=== PATIENT | female | born 1950 | race Caucasian/White ===

== ENCOUNTER 2020-11-23 14:20 | Outpatient (REF) | payer MEDICARE, MEDICAID, SELFPAY ==
--- NOTE | ~2020-11-23 | XR_ITS ---
EXAMINATION: AP BILATERAL KNEE AND RIGHT KNEE 2 VIEWS. CLINICAL INFORMATION: Right knee pain COMPARISON: None TECHNIQUE: AP bilateral knee standing one view. Right knee 2 views FINDINGS: AP BILATERAL KNEE: There is mild reduction in the medial compartment joint space both knees. No visible acute fracture, dislocation seen. RIGHT KNEE: There is mild reduction in and patellofemoral compartment joint space right knee with moderate lateral patellofemoral compartment spurring. No bony erosive changes. No visible acute fracture or dislocation seen. There is mild suprapatellar joint effusion.. XR/XR knee RT 2V IMPRESSION: Degenerative arthritic changes patellofemoral compartment and medial knee right knee with moderate periarticular spurring. Mild degenerative arthritic changes medial compartment left knee.
--- NOTE | ~2020-11-23 | XR_ITS ---
EXAMINATION: AP BILATERAL KNEE AND RIGHT KNEE 2 VIEWS. CLINICAL INFORMATION: Right knee pain COMPARISON: None TECHNIQUE: AP bilateral knee standing one view. Right knee 2 views FINDINGS: AP BILATERAL KNEE: There is mild reduction in the medial compartment joint space both knees. No visible acute fracture, dislocation seen. RIGHT KNEE: There is mild reduction in and patellofemoral compartment joint space right knee with moderate lateral patellofemoral compartment spurring. No bony erosive changes. No visible acute fracture or dislocation seen. There is mild suprapatellar joint effusion.. XR/XR knee standing BI IMPRESSION: Degenerative arthritic changes patellofemoral compartment and medial knee right knee with moderate periarticular spurring. Mild degenerative arthritic changes medial compartment left knee.
== END 2020-11-23 14:21 | disposition home or self-care (01) ==
LOC: HO.HOSX 14:20
PROVIDERS: Visit Provider Physician Assistant
DX: M17.11 Unilateral primary osteoarthritis, right knee (principal)
CPT/HCPCS: 20610; 73560; 73565; 99202; J1040

== ENCOUNTER 2021-12-13 14:30 | Outpatient (REF) | payer MEDICARE, MEDICAID, SELFPAY ==
--- NOTE | ~2021-12-13 | MM_ITS ---
EXAMINATION: MM SCREENING DIGITAL BREAST TOMOSYNTHESIS, BILATERAL CLINICAL INFORMATION: Screening. Asymptomatic. The lifetime risk of breast cancer based on the Tyrer-Cuzick Model is 4%. COMPARISON: Mammography: 01/27/2019, 12/22/2017, 06/05/2015 TECHNIQUE: Digital breast tomosynthesis is performed in both the craniocaudal and mediolateral oblique views along with computer-aided detection (CAD). Synthesized 2D images are generated from the tomosynthesis. FINDINGS: There are scattered areas of fibroglandular density (ACR BI-RADS breast composition Category b). The breast tissue composition borders on heterogeneously dense. There are no significant masses, abnormal calcifications, or other abnormalities. Parenchymal pattern is similar to prior studies. There is no developing density or architectural abnormality. The axilla and skin contours are unremarkable. No significant changes. MM/MM tomosynthesis screening BI IMPRESSION: No mammographic evidence of malignancy. ASSESSMENT: BI-RADS 1: Negative RECOMMENDATION: Routine annual mammography screening. This patient's information was entered into a reminder system with a target due date for their next mammogram.
== END 2021-12-13 14:31 | disposition home or self-care (01) ==
LOC: HO.MAMMO 14:30
PROVIDERS: Visit Provider Student in an Organized Health Care Education/Training Program
DX: Z12.31 Encounter for screening mammogram for malignant neoplasm of breast (principal)
CPT/HCPCS: 77063; 77067

== ENCOUNTER 2022-09-16 15:24 | Outpatient (REF) | payer MEDICARE, MEDICAID, SELFPAY ==
--- NOTE | ~2022-09-16 | CT_ITS ---
EXAMINATION: CT CHEST WITH CONTRAST CLINICAL INFORMATION: Abnormal chest x-ray COMPARISON: Previous chest x-ray September 2010 TECHNIQUE: Multidetector volumetric CT imaging of the chest was obtained after the administration of 65 mL of Omnipaque 350 intravenous contrast without immediate adverse reactions. Axial MIP volume rendering provided. Sagittal and coronal reformatted images were obtained. This CT examination was performed using dose optimization techniques as appropriate, variously including the following: *Automated exposure control *Adjustment of mA and/or kV according to patient size (this includes techniques or standardized protocols for targeted exams where dose is matched to indication/reason for exam; i.e. extremities or head) *Use of iterative reconstruction technique DLP: 137 mGy-cm FINDINGS: LUNGS: There is heterogeneous mosaic attenuation seen throughout the lungs. There areas of increased interstitial markings with interlobular septal thickening. This is seen diffusely throughout the lungs, greatest in the left upper and left lower lobes. There are bilateral pulmonary nodules. 5 mm left upper lobe nodule axial image 82 series 7. 2 mm peripheral or subpleural left lower lobe nodule adjacent to the fissure axial image 76 series 7. 3 mm right middle lobe peripheral or subpleural nodule axial image 110 series 7. 3 mm peripheral right lower lobe nodule axial image 119 series 7. 4 mm right lower lobe nodule axial image 137 series 7. 4 mm left lower lobe nodule axial image 127 series 7. 6 mm left lower lobe nodule axial image 131 series 7. 4 mm left lower lobe nodule axial 4 series 7. 3 mm peripheral or subpleural left lower lobe nodule axial image 142 series 7. 4 mm right lower lobe nodule axial image 129 series 7. No endobronchial or endotracheal lesion. Mild cystic changes seen in the lungs. Largest cyst measures 1.5 cm in the left lower lobe. MEDIASTINUM: Small mediastinal and bilateral hilar lymph nodes. Mild coronary artery calcification. The mediastinum is otherwise normal. PLEURA: There is no pleural effusion. No pleural mass or thickening. AXILLA: No lymphadenopathy. UPPER ABDOMEN: There may be mild fatty infiltration of the liver. OSSEOUS STRUCTURES: Degenerative changes of the spine. CT/CT chest w IV con IMPRESSION: Mosaic attenuation in the lungs and increased interstitial markings with interlobular septal thickening. Differential would include nonspecific interstitial pneumonitis and post infectious or inflammatory changes from viral pneumonia. Bilateral pulmonary nodules, largest a 6 mm left lower lobe pulmonary nodule. According to the UPDATED 2017 Fleischner Society recommendations, the advised follow-up imaging for 6-8 mm solid nodule: 3-6 and 18-[address] follow-up recommended. Fleischner guidelines were followed.
[2022-09-16] MEDS: iohexoL 350 MG/ML 100 ML INFUS..BTL IV (15:55)
[2022-09-17 09:14] LABS: Creatinine POC 0.8 mg/dL (0.5-1.4); GFR POC 60
== END 2022-09-16 15:25 | disposition home or self-care (01) ==
LOC: HO.CT 15:24
PROVIDERS: PCP Student in an Organized Health Care Education/Training Program; Visit Provider Emergency Medicine
DX: J18.9 Pneumonia, unspecified organism (principal)
CPT/HCPCS: 71260; 82565; Q9967

== ENCOUNTER → 2022-10-09 10:20 | Outpatient (BNVA) | payer MEDICARE, MEDICAID, SELFPAY | PROVIDERS: PCP Student in an Organized Health Care Education/Training Program; Visit Provider Nurse Practitioner Family | DX: J84.9 Interstitial pulmonary disease, unspecified (principal); R91.8 Other nonspecific abnormal finding of lung field; Z87.891 Personal history of nicotine dependence | CPT/HCPCS: 99202 ==

== ENCOUNTER 2023-01-13 08:37 | Outpatient (REF) | payer MEDICARE, MEDICAID, SELFPAY ==
[2023-01-13 14:24] LABS: MANUAL DIFF FLAG NO
[2023-01-13 14:29] LABS: Basophils Absolute Auto 0.1 X10*3/uL (0.0-0.2); Basophils Percent Auto 0.8 % (0-2); Eosinophils Absolute Auto 0.1 X10*3/uL (0.0-0.4); Eosinophils Percent Auto 1.5 % (0-4); Hematocrit 41.8 % (37.0-47.0); Hemoglobin 13.9 g/dl (12.0-16.0); Imm Gran Abs Auto 0.04 X10*3/uL (0.00-0.03); Imm Gran Pct Auto 0.5 % (0.0-0.4); Lymphocytes Absolute Auto 2.8 X10*3/uL (1.2-4.9); Lymphocytes Percent Auto 33.6 % (20-40); Mean Corpuscular HGB Conc 33.3 g/dl (31.0-35.0); Mean Corpuscular Hemoglobin 30.7 pg (27.0-33.0); Mean Corpuscular Volume 92.3 fL (80.0-98.0); Mean Platelet Volume 10.2 fL (9.4-12.3); Monocytes Absolute Auto 0.9 X10*3/uL (0.1-1.2); Neutrophils Absolute Auto 4.4 x10*3/uL (2.0-8.3); Neutrophils Percent Auto 52.6 % (45-73); Platelet Count 339 X10*3/uL (160-400); Red Blood Count 4.53 X10*6/uL (4.20-5.50); Red Cell Distribution Width 14.8 % (11.0-16.0); White Blood Count 8.4 X10*3/uL (4.8-10.8)
[2023-01-13 15:09] LABS: Alanine Aminotransferase 17 U/L (0-31); Alkaline Phosphatase 93 U/L (39-117); Anion Gap 12 (12-20); Aspartate Amino Transferase 22 U/L (5-31); Bilirubin Total 0.3 mg/dL (0.0-1.0); Blood Urea Nitrogen 19 mg/dL (9-16); Calcium 9.8 mg/dL (8.4-10.2); Carbon Dioxide 26 mmol/L (22-29); Chloride 111 mmol/L (96-108); Estimated Glomerular Filt Rate 59; Glucose Fasting 66 mg/dL (60-99); Potassium 4.7 mmol/L (3.3-5.1); Sodium 144 mmol/L (135-145); TSH reflex Free T4 1.07 uIU/mL (0.32-4.0); Total Protein 7.4 g/dL (6.5-8.0)
[2023-01-13 15:14] LABS: Folate 6.9 ng/mL (> or = 4.0); Vitamin B12 > 2000 pg/mL (200-900)
[2023-01-13 15:19] LABS: Creatinine Urine 145.57 mg/dL
[2023-01-22 18:54] LABS: Cortisol, Free 0.49 mcg/dL
== END 2023-01-13 08:38 | disposition home or self-care (01) ==
LOC: HO.CHCLDS 08:37
PROVIDERS: Visit Provider Family Medicine
DX: Z13.89 Encounter for screening for other disorder (principal)
CPT/HCPCS: 36415; 80053; 82530; 82570; 82607; 82746; 84300; 84443; 85025

== ENCOUNTER 2023-01-13 12:20 | Outpatient (REF) | payer MEDICARE, MEDICAID, SELFPAY | END 2023-01-13 12:21 | disposition home or self-care (01) | LOC: HO.MAMMO 12:20 | PROVIDERS: PCP Student in an Organized Health Care Education/Training Program; Visit Provider Student in an Organized Health Care Education/Training Program | DX: Z12.31 Encounter for screening mammogram for malignant neoplasm of breast (principal); R42 Dizziness and giddiness; I95.1 Orthostatic hypotension | CPT/HCPCS: 36415; 77063; 77067; 80053; 82530; 82570; 82607; 82746; 84300; 84443; 85025 ==

== ENCOUNTER → 2023-01-13 13:15 | Outpatient (BNV) | payer MEDICARE, MEDICAID, SELFPAY | PROVIDERS: PCP Student in an Organized Health Care Education/Training Program; Visit Provider Radiology Diagnostic Radiology | DX: Z12.31 Encounter for screening mammogram for malignant neoplasm of breast (principal) | CPT/HCPCS: 77063; 77067 ==

== ENCOUNTER 2023-03-20 08:59 | Outpatient (REF) | payer MEDICARE, MEDICAID, SELFPAY ==
[2023-03-20 14:48] LABS: Alanine Aminotransferase 22 U/L (0-31); Alkaline Phosphatase 91 U/L (39-117); Anion Gap 11 (12-20); Aspartate Amino Transferase 23 U/L (5-31); Bilirubin Direct 0.3 mg/dL (0.0-0.5); Bilirubin Total 0.4 mg/dL (0.0-1.0); Blood Urea Nitrogen 21 mg/dL (9-16); Calcium 9.2 mg/dL (8.4-10.2); Carbon Dioxide 27 mmol/L (22-29); Chloride 107 mmol/L (96-108); Cholesterol 174 mg/dL (<200); Estimated Glomerular Filt Rate > 60; Glucose Fasting 61 mg/dL (60-99); HDL Cholesterol 47 mg/dL (>40); LDL Cholesterol Calculated 102 mg/dL (<100); Potassium 4.4 mmol/L (3.3-5.1); Sodium 141 mmol/L (135-145); Total Protein 7.5 g/dL (6.5-8.0); Triglycerides 129 mg/dL (<150)
[2023-03-20 15:03] LABS: Thyroid Stimulating Hormone 1.46 uIU/mL (0.32-4.0)
== END 2023-03-20 09:00 | disposition home or self-care (01) ==
LOC: HO.CHCLDS 08:59
PROVIDERS: Visit Provider Student in an Organized Health Care Education/Training Program
DX: I10 Essential (primary) hypertension (principal); E03.9 Hypothyroidism, unspecified
CPT/HCPCS: 36415; 80048; 80061; 80076; 84443

== ENCOUNTER 2023-07-15 15:25 | Outpatient (REF) | payer OTHER, SELFPAY ==
--- NOTE | ~2023-07-15 | XR_ITS ---
EXAMINATION: XR SHOULDER, RIGHT CLINICAL INFORMATION: Pain in right shoulder COMPARISON: Right shoulder 06/04/2015 TECHNIQUE: AP external rotation, Grashey, scapular Y, and axillary views of the right shoulder. FINDINGS: The bones are intact. No fracture. Glenohumeral and acromioclavicular alignment is anatomic with normal glenohumeral joint space. Moderate degenerative arthritis of the right acromioclavicular joint. No abnormal soft tissue calcifications. 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
== END 2023-07-15 15:26 | disposition home or self-care (01) ==
LOC: HO.XRAY 15:25
PROVIDERS: PCP Student in an Organized Health Care Education/Training Program; Visit Provider Student in an Organized Health Care Education/Training Program
DX: M25.511 Pain in right shoulder (principal); G89.29 Other chronic pain
CPT/HCPCS: 73030

== ENCOUNTER 2024-01-19 12:54 | Outpatient (REF) | payer OTHER, SELFPAY ==
--- NOTE | ~2024-01-19 | MM_ITS ---
EXAMINATION: MM SCREENING DIGITAL BREAST TOMOSYNTHESIS, BILATERAL CLINICAL INFORMATION: Screening. Asymptomatic. COMPARISON: Mammography: Comparison is made with available priors TECHNIQUE: Digital breast mammography with tomosynthesis is performed in both the craniocaudal and mediolateral oblique views along with computer-aided detection (CAD). FINDINGS: The breasts are heterogeneously dense, which may obscure small masses (ACR BI-RADS breast composition Category c). There are no significant masses, abnormal calcifications, or other abnormalities. MM/MM tomosynthesis screening BI IMPRESSION: No mammographic evidence of malignancy. ASSESSMENT: BI-RADS BI-RADS 1 - Negative RECOMMENDATION: Routine annual mammography screening. 1 year F/U This examination should not preclude the clinical evaluation of a suspicious palpable abnormality. This patient's information was entered into a reminder system with a target due date for their next mammogram. Electronically signed by: Patsy Walker DO 01/30/2024 10:28 AM EDT
== END 2024-01-19 12:55 | disposition home or self-care (01) ==
LOC: HO.MAMMO 12:54
PROVIDERS: Visit Provider Student in an Organized Health Care Education/Training Program
DX: Z12.31 Encounter for screening mammogram for malignant neoplasm of breast (principal)
CPT/HCPCS: 77063; 77067

== ENCOUNTER → 2024-01-19 13:15 | Outpatient (BNV) | payer OTHER, SELFPAY | PROVIDERS: Visit Provider Internal Medicine | DX: Z12.31 Encounter for screening mammogram for malignant neoplasm of breast (principal) | CPT/HCPCS: 77063; 77067 ==

== ENCOUNTER 2024-04-19 09:00 | Outpatient (REF) | payer OTHER, SELFPAY ==
[2024-04-19 14:47] LABS: Alanine Aminotransferase 23 U/L (0-31); Alkaline Phosphatase 91 U/L (39-117); Anion Gap 10 (12-20); Aspartate Amino Transferase 32 U/L (5-31); Bilirubin Direct 0.1 mg/dL (0.0-0.5); Bilirubin Total 0.3 mg/dL (0.0-1.0); Blood Urea Nitrogen 18 mg/dL (9-16); Calcium 8.8 mg/dL (8.4-10.2); Carbon Dioxide 26 mmol/L (22-29); Chloride 109 mmol/L (96-108); Cholesterol 157 mg/dL (<200); Estimated Glomerular Filt Rate 59; Glucose Random 72 mg/dL (60-115); HDL Cholesterol 47 mg/dL (>40); LDL Cholesterol Calculated 86 mg/dL (<100); Sodium 141 mmol/L (135-145); Total Protein 7.5 g/dL (6.5-8.0); Triglycerides 123 mg/dL (<150)
[2024-04-19 14:50] LABS: TSH reflex Free T4 0.92 uIU/mL (0.32-4.0)
== END 2024-04-19 09:01 | disposition home or self-care (01) ==
LOC: HO.CHCLDS 09:00
PROVIDERS: Visit Provider Student in an Organized Health Care Education/Training Program
DX: E78.00 Pure hypercholesterolemia, unspecified (principal); E03.9 Hypothyroidism, unspecified
CPT/HCPCS: 36415; 80048; 80061; 80076; 84443

== ENCOUNTER 2025-02-18 07:22 | Outpatient (REF) | payer OTHER, SELFPAY ==
--- NOTE | ~2025-02-18 | MM_ITS ---
EXAMINATION: MM SCREENING DIGITAL BREAST TOMOSYNTHESIS, BILATERAL CLINICAL INFORMATION: Screening. Asymptomatic. COMPARISON: Mammography: Comparison is made with available priors TECHNIQUE: Digital breast mammography with tomosynthesis is performed in both the craniocaudal and mediolateral oblique views along with computer-aided detection (CAD). FINDINGS: The breasts are heterogeneously dense, which may obscure small masses. There are no significant masses, abnormal calcifications, or other abnormalities. MM/MM tomosynthesis screening BI IMPRESSION: No mammographic evidence of malignancy. ASSESSMENT: BI-RADS Category 1: Negative RECOMMENDATION: Routine annual mammography screening. 1 year F/U This examination should not preclude the clinical evaluation of a suspicious palpable abnormality. This patient's information was entered into a reminder system with a target due date for their next mammogram. Electronically signed by: Patsy Walker DO 02/21/2025 11:28 AM EDT
--- OUTSIDE RECORDS SUMMARY | 2025-02-18 07:24 | XMS_ITS | Encounter Summary ---
Author Organization [employer] [facility] Address [address] [place] [address] [address] [address] Care Team Providers Care Makeup Instructor Name Role Phone Tiffanie Aguiar MD Primary Care Provider [phone] Reason for Visit * Reason Comments Med Refill Encounter Details Date Type Department Care Team (Late st Contact Info) Description 12/07/2022 Refill [facility] [address] [place], [place] [phone] Tiffanie Aguiar MD [address] [place], [place] [phone] Social History Tobacco Use Types Packs/Day Years Used Date Smoking Tobacco: Never Assessed Comments Unknown Sex and Gender Information Value Date Recorded Sex Assigned at Female 03/04/2022 10:19 AM EDT Legal Sex Female 10:19 AM EDT Gender Identity Female 03/04/2022 10:19 AM EDT Sexual Orientation Straight 03/04/2022 10 :19 AM EDT documented as of this encounter Plan of Treatment Upcoming Encounters Date Type Department Care Team (Late st Contact Info) Description 04/06/2025 2:30 PM EST Office Visit [facility] [address], [place] [phone] Romelia Gunter MD [address] [place], [place] [phone] documented as of this encounter Visit Diagnoses Not on filedocumented in this encounter Care Teams Makeup Instructor Relationship Specialty Start Date End Date Tiffanie Aguiar MD [address] [place] [id number] PCP - General Family Medicine 04/13/12 documented as of this encounter
--- OUTSIDE RECORDS SUMMARY | 2025-02-18 07:24 | XMS_ITS | Encounter Summary ---
Author Organization [facility] Address [address] [place] [address] [address] [place] [address] Care Team Providers Care Organic Gardening Teacher Name Role Phone Tiffanie Aguiar MD Primary Care Provider [phone] Encounter Details Date Type Department Care Team (Late st Contact Info) Description 09/17/2022 Orders Only [facility] [address] [place] [address] Erica Lau LPN Social History Tobacco Use Types Packs/Day Years [...] Description 04/06/2025 2:30 PM EST Office Visit [facility] [address] [place] [address] Romelia Gunter MD [address] [place] [phone] documented as of this encounter Procedures Procedure Name Priority Date/Time Associated Diagnosis Comments MR CHEST W CONTRAST Routine 09/16/2022 3 :56 PM EDT documented in this encounter Results * MR Chest w/ Contrast (09/16/2022 3:56 PM EDT) Anatomical Region Laterality Modality Chest Magnetic Resonan ce 09/16/2022 3:56 PM EDT Narrative 09/24/2022 9:03 AM EDT [address] [address] [address] Scan Report Signed Patient: Brianne Lloyd MR#: [id number] : 1950 Acct:[id number] Age/Sex: 72 / F ADM Date: 09/16/22 Loc: HO.CT Attending Dr: Oliver Esparza Ordering Physician: Oliver Kilgore Date of Service: 09/16/22 Procedure(s): CT chest w IV con Accession Number(s): [id number] cc: Oliver Kilgore EXAMINATION: CT CHEST WITH CONTRAST CLINICAL INFORMATION: Abnormal chest x-ray COMPARISON: Previous chest x-ray September 2010 TECHNIQUE: Multidetector volumetric CT imaging of the chest was obtained after the administration of 65 mL of Omnipaque 350 intravenous contrast without immediate adverse reactions. Axial MIP volume rendering provided. Sagittal and coronal reformatted images were obtained. This CT examination was performed using dose optimization techniques as appropriate, variously including the following: *Automated exposure control *Adjustment of mA and/or kV according to patient size (this includes techniques or standardized protocols for targeted exams where dose is matched to indication/reason for exam; i.e. extremities or head) *Use of iterative reconstruction technique DLP: 137 mGy-cm FINDINGS: LUNGS: There is heterogeneous mosaic attenuation seen throughout the lungs. There areas of increased interstitial markings with interlobular septal thickening. This is seen diffusely throughout the lungs, greatest in the left upper and left lower lobes. There are bilateral pulmonary nodules. 5 mm left upper lobe nodule axial image 82 series 7. 2 mm peripheral or subpleural left lower lobe nodule adjacent to the fissure axial image 76 series 7. 3 mm right middle lobe peripheral or subpleural nodule axial image 110 series 7. 3 mm peripheral right lower lobe nodule axial image 119 series 7. 4 mm right lower lobe nodule axial image 137 series 7. 4 mm left lower lobe nodule axial image 127 series 7. 6 mm left lower lobe nodule axial image 131 series 7. 4 mm left lower lobe nodule axial 4 series 7. 3 mm peripheral or subpleural left lower lobe nodule axial image 142 series 7. 4 mm right lower lobe nodule axial image 129 series 7. No endobronchial or endotracheal lesion. Mild cystic changes seen in the lungs. Largest cyst measures 1.5 cm in the left lower lobe. MEDIASTINUM: Small mediastinal and bilateral hilar lymph nodes. Mild coronary artery calcification. The mediastinum is otherwise normal. PLEURA: There is no pleural effusion. No pleural mass or thickening. AXILLA: No lymphadenopathy. UPPER ABDOMEN: There may be mild fatty infiltration of the liver. OSSEOUS STRUCTURES: Degenerative changes of the spine. CT/CT chest w IV con IMPRESSION: Mosaic attenuation in the lungs and increased interstitial markings with interlobular septal thickening. Differential would include nonspecific interstitial pneumonitis and post infectious or inflammatory changes from viral pneumonia. Bilateral pulmonary nodules, largest a 6 mm left lower lobe pulmonary nodule. According to the UPDATED 2017 Fleischner Society recommendations, the advised follow-up imaging for 6-8 mm solid nodule: 3-6 and 18-[address] follow-up recommended. Fleischner guidelines were followed. Dictated By: Lianet Guallpa MD Signed By: <Electronically signed by Lianet Guallpa MD in OV> 09/24/22 0900 DD/ 1556 TD/TT: Ground Instructor Advanced: FRANSISCO Procedure Note Donotuseinterpreter, Image - 11/06/[address] [place] [address] [address] Scan Report Signed Patient: Brianne Llyod#: [id number] : 2Acct:[id number] Age/Sex: 72 / FADM Date: 09/16/22 Loc: HO.CT Attending Dr: Oliver Esparza Ordering Physician: Oliver Kilgore Date of Service: 09/16/22 Procedure(s): CT chest w IV con Accession Number(s): [id number] cc: Oliver Kilgore EXAMINATION: CT CHEST WITH CONTRAST CLINICAL INFORMATION: Abnormal chest x-ray COMPARISON: Previous chest x-ray September 2010 TECHNIQUE: Multidetector volumetric CT imaging of the chest was obtained after the administration of 65 mL of Omnipaque 350 intravenous contrast without immediate adverse reactions. Axial MIP volume rendering provided. Sagittal and coronal reformatted images were obtained. This CT examination was performed using dose optimization techniques as appropriate, variously including the following: *Automated exposure control *Adjustment of mA and/or kV according to patient size (this includes techniques or standardized protocols for targeted exams where dose is matched to indication/reason for exam; i.e. extremities or head) *Use of iterative reconstruction technique DLP: 137 mGy-cm FINDINGS: LUNGS: There is heterogeneous mosaic attenuation seen throughout the lungs. There areas of increased interstitial markings with interlobular septal thickening. This is seen diffusely throughout the lungs, greatest in the left upper and left lower lobes. There are bilateral pulmonary nodules. 5 mm left upper lobe nodule axial image 82 series 7. 2 mm peripheral or subpleural left lower lobe nodule adjacent to the fissure axial image 76 series 7. 3 mm right middle lobe peripheral or subpleural nodule axial image 110 series 7. 3 mm peripheral right lower lobe nodule axial image 119 series 7. 4 mm right lower lobe nodule axial image 137 series 7. 4 mm left lower lobe nodule axial image 127 series 7. 6 mm left lower lobe nodule axial image 131 series 7. 4 mm left lower lobe nodule axial 4 series 7. 3 mm peripheral or subpleural left lower lobe nodule axial image 142 series 7. 4 mm right lower lobe nodule axial image 129 series 7. No endobronchial or endotracheal lesion. Mild cystic changes seen in the lungs. Largest cyst measures 1.5 cm in the left lower lobe. MEDIASTINUM: Small mediastinal and bilateral hilar lymph nodes. Mild coronary artery calcification. The mediastinum is otherwise normal. PLEURA: There is no pleural effusion. No pleural mass or thickening. AXILLA: No lymphadenopathy. UPPER ABDOMEN: There may be mild fatty infiltration of the liver. OSSEOUS STRUCTURES: Degenerative changes of the spine. CT/CT chest w IV con IMPRESSION: Mosaic attenuation in the lungs and increased interstitial markings with interlobular septal thickening. Differential would include nonspecific interstitial pneumonitis and post infectious or inflammatory changes from viral pneumonia. Bilateral pulmonary nodules, largest a 6 mm left lower lobe pulmonary nodule. According to the UPDATED 2017 Fleischner Society recommendations, the advised follow-up imaging for 6-8 mm solid nodule: 3-6 and 18-[address] follow-up recommended. Fleischner guidelines were followed. Dictated By: Lianet Guallpa MD Signed By: <Electronically signed by Lianet Guallpa MD in OV> 09/24/22 0900 DD/ 1556 TD/TT: Ground Instructor Advanced: FRANSISCO [facility] External Provider IMG MRI PROCEDURES Final Result documented in this encounter Visit Diagnoses Not on filedocumented in this encounter Care Teams Organic Gardening Teacher Relationship Specialty Start Date End Date Tiffanie Aguiar MD [address] [place] [phone] PCP - General Family Medicine 04/13/12 documented as of this encounter
--- OUTSIDE RECORDS SUMMARY | 2025-02-18 07:24 | XMS_ITS | Clinical Summary ---
Author Organization [facility] Address [address] [place] [address] 7[address] [place] [address] Care Team Providers Care Iuss Master Analyst Name Role Phone Tiffanie Aguiar MD Primary Care Provider [phone] Allergies Active Allergy Reactions Criticality Noted Date Comments Atorvastatin Other reaction(s): Joint Ache Medications Aspirin Low Dose 81 MG EC tabletIndicatio ns:Hypertension , unspecified type TAKE 1 TABLET BY MOUTH EVERY DAY 90 tablet 2 4 Active levothyroxine (Synthroid, Levoxyl) 75 MCG tablet TAKE 1 TABLET BY MOUTH EVERY DAY IN THE MORNING 90 tablet 1 5 Active cyanocobalamin (Vitamin B-12) 1000 MCG tablet TAKE 1 TABLET BY MOUTH EVERY DAY 90 tablet 1 5 Active rosuvastatin (Crestor) 10 MG tabletIndicatio ns:Hypercholest eremia TAKE 1 TABLET BY MOUTH EVERY DAY IN THE MORNING 90 tablet 3 5 Active rosuvastatin (Crestor) 10 MG tabletIndicatio ns:Hypercholest eremia TAKE 1 TABLET BY MOUTH EVERY DAY IN THE MORNING 90 tablet 3 4 025 Discontinued Active Problems Problem Noted Date Diagnosed Date Hypothyroidism 03/07/2014 Joint pain 03/07/2014 Pure hypercholesterolemia 03/07/2014 Tobacco dependence syndrome 03/07/2014 Encounters Date Type Department Care Team Description 01/21/2025 Refill [facility] [address] [place] [address] Tiffanie Aguiar MD Hypercholesteremia 12/25/2024 Refill [facility] [address] [facility] [place] [address] Tiffanie Aguiar MD 11/23/2024 9:00 AM EDT Office Visit [facility] MED & PED[facility] [address] [facility] [place] [address] Tiffanie Aguiar MD Hypothyroidism, unspecified type (Primary Dx); Pure hypercholesterolemia; Feeling grief 11/23/2024 Travel 11/22/2024 Telephone [facility] MED & P[facility]S [address] [facility] [place] [address] Tiffanie Aguiar MD Chart Prep from Last 3 Months Immunizations Immunization Administration Dates Next Due Influenza injectable quadriv alent IIV4 with preservative 02/23/2018 Influenza, Split (incl. purified surface antigen ) 04/13/2012 Pneumococcal Conjugate PCV 13 10/29/2017 Pneumococcal Polysaccharide PPSV23 11/15/2021 TD (adult), 2 Lf tetanus tox oid, preservative free, adsorbed 08/21/2016 Tdap 06/11/2023 Zoster, Recombinant 07/31/2024 Zoster, live 08/21/2016 Social History Tobacco Use Types Packs/Day Years Used Date Smoking Tobacco: Every Day Cigarettes Tobacco Cessation:Ready to Q uit: Not Asked; Counseling Given: Not Answered Alcohol Use Standard Drinks/Week Comments Defer 0 (1 standard drink = 0.6 oz pur e alcohol) Alcohol Answer Date Recorded Frequency of Alcohol Consumption Not on file 02/20/2023 Average Number of Drinks Not on file 023 Frequency of Binge Drinking Not on file 02/02 Score 0 02/20/2023 Depression Answer Date Recorded Patient Health Questionnaire-9 Score 3 06/11/2023 Patient Health Questionnaire-9 Score 3 06/11/2023 Last PHQ-9: Questionnaire Data Not on file 0 06/11/2023 Housing Stability Answer Date Recorded What is your housing situation today? I have marcus velasquez 11/23/[address] you li ve. Do you have problems with any of the following? None of the above 11/23/2024 Food Insecurity Answer Date Recorded Within the past 12 months, y ou worried that your food would run out before you got money to buy more: Never True 11/23/2024 Within the past 12 months,th e food you bought just didn't last and you didn't have enough money to get more: Never True Transportation Answer Date Recorded In the past 12 months, has l ack of transportation kept you from medical appts, meetings, work or from getting things needed for daily living? No 11/23/2024 Utilities Answer Date Recorded In the past 12 months, has t he electric, gas, oil or water company threatened to shut off services in your home? No 11/23/2024 Depression Answer Date Recorded Patient Health Questionnaire-2 Score 2 06/11/2023 Internet Access Answer Date Recorded Internet Access Q1 No 11/23/2024 Internet Access Q2 I do not want or need it 11/03 Comments No Sex and Gender Information Value Date Recorded Sex Assigned at Female 03/04/2022 10:19 AM EDT Legal Sex Female 10:19 AM EDT Gender Identity Female 03/04/2022 10:19 AM EDT Sexual Orientation Straight 03/04/2022 10 :19 AM EDT Last Filed Vital Signs Vital Sign Reading Time Taken Comments Blood Pressure 138/60 11/23/2024 9:00 AM EDT Pulse 68 11/23/2024 9:00 AM EDT Temperature 36.4 C (97.6 F) 11/23/2024 9:00 AM EDT Respiratory Rate 18 11/23/2024 9:00 AM EDT Oxygen Saturation 97% 11/23/2024 9:00 AM EDT Inhaled Oxygen Concentration - - Weight 70.8 kg (156 lb) 11/23/2024 9:00 AM EDT Height 151.1 cm (4' 11.5 ) 11/23/2024 9:00 AM ED T Body Mass Index 30.98 11/23/2024 9:00 AM EDT Plan of Treatment Upcoming Encounters Date Type Department Care Team (Late st Contact Info) Description 04/06/2025 2:30 PM EST Office Visit [facility] MED & PEDS [address] [place] [address] Romelia Gunter MD [address] [place] [address] Health Maintenance Due Date Last Done Comments CT Colonography 1950 Colonoscopy 1950 FIT 1950 Sigmoidoscopy 1950 Alcohol/Substance Use Screening 1963 Hepatitis C Screening 1969 Depression Screening 06/11/2024 06/11/2023, 06/11/19 FOBT 07/18/2024 07/19/2023 Zoster Vaccines (3 of 3) 09/25/2024 07/31/2024, 08/03 COVID-19 Vaccine ( season) 2025 03/08/2022, 03/26/2021, 09/12/2020, Additional history exists Influenza Vaccine (#1) 2025 02/23/2018, 2011 Mammogram 01/18/2025 01/19/2024, 01/03, 12/13/2021, Additional history exists SDOH Screening 11/23/2025 11/23/2024 Tobacco Screening 11/23/2025 11/23/2024 RSV Patients and Patients Aged 60 years or older (1 - 1-dose 75+ series) 2026 Colorectal Cancer Screening 07/18/2026 FIT DNA/Cologuard 07/18/2026 07/19/2023 Lipid Panel 04/19/2029 04/19/2024, 03/05, 11/22/2021, Additional history exists DTaP/Tdap/Td Vaccines (2 - Td or Tdap) 06/11/2033 06/11/2023, 08/21/2016 Pneumococcal Vaccine: 50+ Years Completed 11/15/2021, 10/29/2017 HIB Vaccines Aged Out No longer eligi ble based on patient's age to complete this topic HPV Vaccines Aged Out No longer eligi ble based on patient's age to complete this topic Hepatitis A Vaccines Aged Out No long er eligible based on patient's age to complete this topic Hepatitis B Vaccines Aged Out No long er eligible based on patient's age to complete this topic IPV Vaccines Aged Out No longer eligi ble based on patient's age to complete this topic Meningococcal B Vaccine Aged Out No l onger eligible based on patient's age to complete this topic Meningococcal Vaccine Aged Out No jose jonelle eligible based on patient's age to complete this topic RSV under 20 months Aged Out No longe r eligible based on patient's age to complete this topic Rotavirus Vaccines Aged Out No longer eligible based on patient's age to complete this topic Procedures Procedure Name Priority Date/Time Associated Diagnosis Comments LIPID PANEL, STANDARD Routine 04/19/2024 9:23 AM EST Pure hypercholesterolemia BI MAMMOGRAM SCREENING TOMOSYNTHESIS BILATERAL Routine 01/19/2024 1:00 PM EDT LAB COLOGUARD COLON CANCER SCREEN Routine 07/19/2023 11:01 AM EDT Encounter for screening for malignant neoplasm of colon from Last 3 Months or Most Recently Relevant to Health Maintenance Results * Lipid Panel, Standard (04/19/2024 9:23 AM EST) Triglycerides 123 <150 mg/dL [facility] Comment:Desirable Triglyceri de: less than 150 mg/dLBorderline High Triglyceride 150-199 mg/dLHigh Triglyceride: 200-499 mg/dLVery High Triglyceride: greater than or equal to 5OO mg/dL Cholesterol 157 <200 mg/dL [facility] Comment:Desirable Cholestero l: less than 200 mg/dLBorderline High Cholesterol: 200-239 mg/dLHigh Cholesterol: greater than 239 mg/dL LDL Cholesterol Calculated 86 <100 mg/dL [facility] Comment:Desirable LDL: less than 100 mg/dLNear Optimal/Above Optimal LDL: 110- 129 mg/dLBorderline High LDL: 130-159 mg/dLHigh LDL: 160-189 mg/dLVery High LDL: greater than or equal to 190 mg/dL HDL Cholesterol 47 >40 mg/dL [facility] Comment:Desirable HDL: great er than 40 mg/dL Note: This HDL assay may give artificially low results in patients with liver disease. Blood Venous blood specimen / Unknown 04/19/2024 9:23 AM EST 04/19/2024 2:01 PM EST us Tiffanie Aguiar MD LAB BLOOD ORDERABLES Final Resul t [facility] [address] [place] [phone] * BI Mammogram Screening Tomosynthesis Bilateral (01/19/2024 1:00 PM EDT) Anatomical Region Laterality Modality Breast Bilateral Mammography 01/19/2024 1:00 PM EDT Narrative 01/30/2024 10:30 AM EDT [facility] [address] [place] [address] Mammography Report Signed Patient: Brianne Lloyd MR#: [id number] : 1950 Acct:[id number] Age/Sex: 73 / F ADM Date: 01/19/24 Loc: HO.MAMMO Attending Dr: Tiffanie Aguiar MD Ordering Physician: Tiffanie Aguiar MD Results: 1Negati ve Date of Service: 01/19/24 Follow Up: 1 Year From Orig inal Mammogram Procedure(s): MM tomosynthesis screening BI Accession Number(s): [id number] cc: Tiffanie Aguiar MD EXAMINATION: MM SCREENING DIGITAL BREAST TOMOSYNTHESIS, BILATERAL CLINICAL INFORMATION: Screening. Asymptomatic. COMPARISON: Mammography: Comparison is made with available priors TECHNIQUE: Digital breast mammography with tomosynthesis is performed in both the craniocaudal and mediolateral oblique views along with computer-aided detection (CAD). FINDINGS: The breasts are heterogeneously dense, which may obscure small masses (ACR BI-RADS breast composition Category c). There are no significant masses, abnormal calcifications, or other abnormalities. MM/MM tomosynthesis screening BI IMPRESSION: No mammographic evidence of malignancy. ASSESSMENT: BI-RADS BI-RADS 1 - Negative RECOMMENDATION: Routine annual mammography screening. 1 year F/U This examination should not preclude the clinical evaluation of a suspicious palpable abnormality. This patient's information was entered into a reminder system with a target due date for their next mammogram. Electronically signed by: Patsy Walker DO 01/30/2024 10:28 AM EDT Dictated By: Patsy Walker DO Signed By: <Electronically signed by Patsy Walker DO in OV> 01/30/24 1028 DD/ 1300 TD/TT: 01/19/24 1319 Director Of Engineering: Procedure Note Donotuseinterpreter, Image - 01/30/2024 [facility] [address] [place] [address] Mammography Report Signed Patient: Brianne LloydMR#: [id number] : 2Acct:[id number] Age/Sex: 73 / FADM Date: 01/19/24 Loc: HO.MAMMO Attending Dr: Tiffanie Aguiar MD Ordering Physician: Tiffanie Aguiar MDResults: 1Negati ve Date of Service: 01/19/24Follow Up: 1 Year From Orig inal Mammogram Procedure(s): MM tomosynthesis screening BI Accession Number(s): [id number] cc: Tiffanie Aguiar MD EXAMINATION: MM SCREENING DIGITAL BREAST TOMOSYNTHESIS, BILATERAL CLINICAL INFORMATION: Screening. Asymptomatic. COMPARISON: Mammography: Comparison is made with available priors TECHNIQUE: Digital breast mammography with tomosynthesis is performed in both the craniocaudal and mediolateral oblique views along with computer-aided detection (CAD). FINDINGS: The breasts are heterogeneously dense, which may obscure small masses (ACR BI-RADS breast composition Category c). There are no significant masses, abnormal calcifications, or other abnormalities. MM/MM tomosynthesis screening BI IMPRESSION: No mammographic evidence of malignancy. ASSESSMENT: BI-RADS BI-RADS 1 - Negative RECOMMENDATION: Routine annual mammography screening. 1 year F/U This examination should not preclude the clinical evaluation of a suspicious palpable abnormality. This patient's information was entered into a reminder system with a target due date for their next mammogram. Electronically signed by: Patsy Walker DO 01/30/2024 10:28 AM EDT Dictated By: Patsy Walker DO Signed By: <Electronically signed by Patsy Walker DO in OV> 01/30/24 1028 DD/ 1300 TD/TT: 01/19/24 1319 Director Of Engineering: us Tiffanie Aguiar MD IMG BI PROCEDURES Final Result * Cologuard?? colon cancer screening (07/19/2023 11:01 AM EDT) Cologuard Result Negative Negative 07/25/19 7:39 PM EDT [employer] (CLIA #:[id number]) Comment: NEGATIVE TEST RESULT. A negative Cologuard result indicates a low likelihood that a colorectal cancer (CRC) or advanced adenoma (adenomatous polyps with more advanced pre-malignant features) is present. The chance that a person with a negative Cologuard test has a colorectal cancer is less than 1 in 1500 (negative predictive value >99.9%) or has an advanced adenoma is less than 5.3% (negative predictive value 94.7%). These data are based on a prospective cross-sectional study of 10,000 individuals at average risk for colorectal cancer who were screened with both Cologuard and colonoscopy. (Abel Cee et al, N Engl J Med 2014;370(14):4916-1575) The normal value (reference range) for this assay is negative. COLOGUARD RE-SCREENING RECOMMENDATION: Periodic colorectal cancer screening is an important part of preventive healthcare for asymptomatic individuals at average risk for colorectal cancer. Following a negative Cologuard result, the [place] Cancer Society and U.S. Multi-Society Task Force screening guidelines recommend a Cologuard re-screening interval of 3 years. References: [place] Cancer Society Guideline for Colorectal Cancer Screening: https://www.cancer.org/cancer/winld-xmwthv-bsziay/ihzqawxhl-fclwysqvw-txdufdk/ac s-rec ommendations.html.; John STAPLES, Girish CR, Olga LangK, Colorectal Cancer Screening: Recommendations for Physicians and Patients from the U.S. Multi-Society Task Force on Colorectal Cancer Screening , Am J Gastroenterology 2017; 112:2319-4109. TEST DESCRIPTION: Composite algorithmic analysis of stool DNA-biomarkers with hemoglobin immunoassay. Quantitative values of individual biomarkers are not reportable and are not associated with individual biomarker result reference ranges. Cologuard is intended for colorectal cancer screening of adults of either sex, 45 years or older, who are at average-risk for colorectal cancer (CRC). Cologuard has been approved for use by the U.S. FDA. The performance of Cologuard was established in a cross sectional study of average-risk adults aged 50-84. Cologuard performance in patients ages 45 to 49 years was estimated by sub-group analysis of near-age groups. Colonoscopies performed for a positive result may find as the most clinically significant lesion: colorectal cancer [4.0%], advanced adenoma (including sessile serrated polyps greater than or equal to 1cm diameter) [20%] or non- advanced adenoma [31%]; or no colorectal neoplasia [45%]. These estimates are derived from a prospective cross-sectional screening study of 10,000 individuals at average risk for colorectal cancer who were screened with both Cologuard and colonoscopy. (Abel Menchaca. et al, N Engl J Med 2014;370(14):1620-4256.) Cologuard may produce a false negative or false positive result (no colorectal cancer or precancerous polyp present at colonoscopy follow up). A negative Cologuard test result does not guarantee the absence of CRC or advanced adenoma (pre-cancer). The current Cologuard screening interval is every 3 years. ([place] Cancer Society and U.S. Multi-Society Task Force). Cologuard performance data in a 10,000 patient pivotal study using colonoscopy as the reference method can be accessed at the following location: www.[employer]/results. Additional description of the Cologuard test process, warnings and precautions can be found at www.[employer].com. Stool specimen (specimen) 07/19/2023 11:01 AM EDT 07/22/2023 1:56 PM EDT us Tiffanie Aguiar MD LAB MOLECULAR DIAGNOSTICS ORDERA BLEHeidi Final Result [employer] (CLIA #:[id number]) [place] [place] [place] [address], from Last 3 Months or Most Recently Relevant to Health Maintenance Insurance CLAERNCE CACERES [phone] * Guarantor: Brianne Lloyd Account Type Relation to Patient Date of Phone Billing Address Personal/Family Self [address] Care Teams Iuss Master Analyst Relationship Specialty Start Date End Date Tiffanie Aguiar MD [address] [place] [address] [place] [id number] PCP - General Family Medicine 04/13/12
--- OUTSIDE RECORDS SUMMARY | 2025-02-18 07:24 | XMS_ITS | Encounter Summary ---
Author Organization [employer] Address [address] [facility] [address]t [place] [address] Care Team Providers Care Barge Pilot Name Role Phone Tiffanie Aguiar MD Primary Care Provider [phone] Reason for Visit * Reason Comments Med Refill Encounter Details Date Type Department Care Team ([facility] Contact Info) Description 02/29/2024 Refill [facility]S [address] [place], [place] [phone] Tiffanie Aguiar MD [address] [place] [address] Social History Tobacco Use Types Packs/Day Years Used Date Smoking Tobacco: Every Day Cigarettes Alcohol Use Standard Drinks/Week Comments Defer 0 [...] housing situation today? I have marcus velasquez 05/30/[address] you li ve. Do you have problems with any of the following? None of the above 05/30/2023 Food Insecurity Answer Date Recorded Within the past 12 months, y ou worried that your food would run out before you got money to buy more: Never True 05/30/2023 Within the past 12 months,th e food you bought just didn't last and you didn't have enough money to get more: Never True Transportation Answer Date Recorded In the past 12 months, has l ack of transportation kept you from medical appts, meetings, work or from getting things needed for daily living? No 05/30/2023 Utilities Answer Date Recorded In the past 12 months, has t he electric, gas, oil or water company threatened to shut off services in your home? No 05/30/2023 Depression Answer Date Recorded Patient Health Questionnaire-2 Score 2 06/11/2023 Comments No Sex and Gender Information Value [...] Description 04/06/2025 2:30 PM EST Office Visit [facility] MED & PEDS [address] [place] [address] Romelia Gunter MD [address] [place] [address] documented as of this encounter Visit Diagnoses Not on filedocumented in this encounter Additional Health Concerns Assessment Noted Time PHQ-9 Depression Total Score: 3 06/11/19 24 10:14 AM EST documented as of this encounter Care Teams Barge Pilot Relationship Specialty Start Date End Date Tiffanie Aguiar MD [address] [place] [id number] PCP - General Family Medicine 04/13/12 documented as of this encounter
--- OUTSIDE RECORDS SUMMARY | 2025-02-18 07:24 | XMS_ITS | Encounter Summary ---
Author Organization [employer] [facility] Address [address] [place] [address] [address] [place] [address] Care Team Providers Care Streetcar Repairer Name Role Phone Tiffanie Aguiar MD Primary Care Provider [phone] Encounter Details Date Type Department Care Team (Late st Contact Info) Description 10/15/2022 Orders Only [facility] MED & PEDS [address] [place] [address] Yaz Kent LPN Social History Tobacco Use Types Packs/Day [...] Description 04/06/2025 2:30 PM EST Office Visit [facility] MED & PED[facility] [address] [place] [address] Romelia Gunter MD [address] [place] [address] documented as of this encounter Visit Diagnoses Not on filedocumented in this encounter Care Teams Streetcar Repairer Relationship Specialty Start Date End Date Tiffanie Aguiar MD [address] [place] [address] PCP - General Family Medicine 04/13/12 documented as of this encounter
--- OUTSIDE RECORDS SUMMARY | 2025-02-18 07:25 | XMS_ITS | Encounter Summary ---
Author Organization [employer] Address [address] [facility] [address] [place] [address] Care Team Providers Care Coach Driver Name Role Phone Tiffanie Aguiar MD Primary Care Provider [phone] Reason for Visit * Reason Onset Date Comments Medication request 09/22/2023 Encounter Details Date Type Department Care Team ([facility] Contact Info) Description 09/22/2023 Telephone [facility] [address] [place] [address] Tiffanie Aguiar MD [address] [place] [address] Medication request Social History Tobacco Use Types Packs/Day Years [...] AM EDT documented as of this encounter Miscellaneous Notes * Telephone Encounter - Mike Russo - 09/22/2023 8:13 AM EDT Tc from patient calling to request Naproxen for Sciatica patient stated PCP is aware and prescribedthis medication in the past however documentation writer does not see anything on patients med list documented in this encounter Plan of Treatment Upcoming Encounters Date Type Department Care Team (Late st Contact Info) Description 04/06/2025 2:30 PM EST Office Visit [facility] [address] [place] [address] Romelia Gunter MD [address] [place] [address] documented as of this encounter Visit Diagnoses Not on filedocumented in this encounter Additional Health Concerns Assessment Noted Time PHQ-9 Depression Total Score: 3 06/11/19 24 10:14 AM EST documented as of this encounter Care Teams Coach Driver Relationship Specialty Start Date End Date Tiffanie Aguiar MD [address] [place] [id number] PCP - General Family Medicine 04/13/12 documented as of this encounter
--- OUTSIDE RECORDS SUMMARY | 2025-02-18 07:25 | XMS_ITS | Data Portability ---
Author Organization [facility] Address [address] [place] [address] Care Team Providers Care Drag Seiner Name Role Phone [facility] Primary Care Provider Assessment No assessment recorded. Plan of Treatment Reminders Order Date Submit Date Provider Last Modified By Organization Details Last Modified Time Details Appointments None recorded. Lab None recorded. Referral None recorded. Procedures None recorded. Surgeries None recorded. Imaging None recorded. Medication Orders albuterol sulfate 2.5 mg/3 mL (0.083 %) solution for nebulizatio n 2022 023 [email or web address] Not available 11:28:27 albuterol sulfate HFA 90 mcg/actuati on aerosol inhaler 2022 023 [facility] #[id number], [address] [place], [address], 3 11:30:55 Medrol (Carter) 4 mg tablets in a dose pack 2022 023 [facility]armacy #[id number], [address] [place], [address], 3 11:30:53 Patient TargetsNo targets recorded. Patient Instructions Encounter Date Encounter Id Patient Instructions Last Modified By Organization Details Last Modified Time 07/13/2022 [id number] peak flow* NELLIE Not available 07/03 14:22:58 Reason for Referral None Reported. Results Created Date Observation Date Name Description Value Unit Range Abnormal Flag Note LastModifiedBy Organization Detail LastModifiedTime 07/14/19 23 07/13/2022 peak flow* Pre (L/min) 160 Not Available _ [address] [place], [address], 07/13/2022 10:45:58 07/14/1907/13/2022 peak flow* Post (L/min) 130 Not [facility] [address] [place] [address], [address], 07/13/2022 10:45:58 07/14/1907/13/2022 peak flow* Pulse 85 Not Available [address] [place], [address], 07/13/2022 10:45:58 07/14/1907/13/2022 peak flow* Oxygen Saturation 97 Not Available nallely [address] [place], [address], 07/13/2022 10:45:58 Result Notes None recorded. Problems Name Problem SNOMED Code Status Onset Date Resolution Date Notes Provider Name and Address Organization Details Recorded Time Disorder of thyroid gland 10339296 Active 2022 SAJAN gaspar, [place] - [facility] 10:17:43 Hyperlipidemia 30822057 Active 2022 SAJAN BRANDON null, PA - [facility] 10:18:02 Problem Notes None recorded. Procedures Surgical History Date Name Laterality Status Provider Name and Address Organization Details Recorded Time 07/14/19 Nebulizer Treatment completed SAJAN BRANDON PA - [facility] 07/13/2022 11:05:40 Appendectomy completed SAJAN BRANDON PA - [facility] 07/13/2022 10:19:26 Imaging Results None recorded. Procedure Notes None recorded. Medical Equipment None Reported. Allergies No known drug allergies Medications Name Sig Start Date Stop Date Status Note LastModified by Organization Details LastModified Time albuterol sulfate 2.5 mg/3 mL (0.083 %) solution for nebulizatio n Inhale 3 mL by nebulizat ion route. 2022 active Not Available Not Available Not Avai lable ibuprofen 800 mg tablet TAKE 1 TABLET BY MOUTH TWICE A DAY active Not Available Not Available No t Available Medrol (Carter) 4 mg tablets in a dose pack Use per dose pack instructi ons 2022 active Not Available Not Available Not Avai lable cyanocobala min (vit B-12) 1,000 mcg tablet TAKE 1 TABLET BY MOUTH EVERY DAY ONE DOSE active Not Available Not Available No t Available aspirin 81 mg tablet,aura yed release TAKE 1 TABLET BY MOUTH EVERY DAY active Not Available Not Available No t Available levothyroxi ne 75 mcg tablet TAKE 1 TABLET BY MOUTH EVERY DAY active Not Available Not Available No t Available albuterol sulfate HFA 90 mcg/actuati on aerosol inhaler Inhale 2 puffs 3 times a day by inhalatio n route for 7 days. 2022 active Not Available Not Available Not Avai lable rosuvastati n 10 mg tablet TAKE 1 TABLET BY MOUTH EVERY DAY IN THE MORNING active Not Available Not Available No t Available Vitamin D3 50 mcg (2,000 unit) tablet TAKE 1 TABLET BY MOUTH EVERY DAY active Not Available Not Available No t Available Flowflex COVID-19 Antigen Home Test kit USE ACCORDING TO MANUFACTU RER'S DIRECTION S 07/13 completed Not Available Not Available Not Available Vitals Date Recorded Body height Body mass index (BMI) Body weight Oxygen saturation Oxygen saturation in Arterial blood by Pulse oximetry Heart rate Respiratory rate Body temperature Systolic And Diastolic Provider Name and Address Organization Details Last Updated DateTime 3 149.86 cm 33.1 kg/m2 47149.1 5 g 96 % 96 % 68 /min 16 /min 97.9 [degF] 122/70 mm[Hg] SAJAN LIMA - [facility] 3 10:24:51 Social History Question Answer Notes LastModified by Organizat ion Details LastModified Time Tobacco Smoking Status Current Every Day Smoker CLARENCE Estrada [facility] 07/13/2022 10:18:27 How Much Tobacco Do You Smoke? 0.25 PPD Information not available 07/13/2022 Have You Recently Traveled Abroad? No Information not available 07/13/2022 Sex: Unknown Functional Status Question Answer Note LastModified by Organizat ion Details LastModified Time Do you use any illicit or recreational drugs? No Information not available 07/13/2022 Do you or have you ever used any other forms of tobacco or nicotine? No Information not available 07/13/2022 What is your level of alcohol consumption? None Information not available 07/13/2022 Are you currently employed? No Information not available 07/13/2022 Mental Status None recorded. Family History Relationship Description Onset Age of this Age Resolved Age Notes LastModified by Organization Details LastModified Time Father No current problems or disability Not available 07/13 10:18:09 Mother No current problems or disability Not available 07/13 10:18:09 Medical History No medical history recorded. Gynecological HistoryNo gynecological history recorded. Obstetrics History GPAL:G 0 P 0 0 0 0 Immunizations Vaccine Type Date Status Note Provider Nam e and Address Organization Details Recorded Time Influenza, split virus, quadrivalent, preservative 8 completed SAJAN ROMA null, PA - [facility] 07/13/2022 10:16:30 COVID-19, mRNA, LNP-S, PF, 100 mcg/0.5mL dose or 50 mcg/0.25mL dose 1 completed SAJAN ROMA null, PA - [facility] 07/13/2022 10:16:30 COVID-19, mRNA, LNP-S, PF, 100 mcg/0.5mL dose or 50 mcg/0.25mL dose 1 completed SAJAN ROMA null, PA - [facility] 07/13/2022 10:16:30 COVID-19, mRNA, LNP-S, PF, 100 mcg/0.5mL dose or 50 mcg/0.25mL dose 1 completed SAJAN ROMA null, PA - [facility] 07/13/2022 10:16:30 COVID-19, mRNA, LNP-S, bivalent, PF, 50 mcg/0.5 mL or 25mcg/0.25 mL dose 2 completed SAJAN ROMA null, PA - [facility] 07/13/2022 10:16:30 pneumococcal polysaccharide PPV23 2 completed SAJAN ROMA null, PA - [facility] 07/13/2022 10:16:30 Pneumococcal conjugate PCV 13 8 completed SAJAN ROMA null, PA - [facility] 07/13/2022 10:16:30 zoster live 7 completed SAJAN ROMA null, PA - [facility] 07/13/2022 10:16:30 influenza, split (incl. purified surface antigen) 2 completed SAJAN ROMA null, PA - [facility] 07/13/2022 10:16:30 Td (adult), 2 Lf tetanus toxoid, preservative free, adsorbed 7 completed SAJAN ROMA null, PA - [facility] 07/13/2022 10:16:30 Past Encounters Encounter ID Performer Location Encounter Start Date Encounter Closed Date Diagnosis/Indication Diagnosis SNOMED-CT Code Diagnosis ICD10 Code Diagnosis IMO Codes Diagnosis Note [id number] [facility] [address] [address] [place] [address] 01/18/2017 13:53:46 01/18/2017 14:31:30 [id number] [address] [place] [address] 06/09/2016 10:58:16 06/09/2016 12:28:42 [id number] [address] [place] [address] 10/04/2019 10:24:37 10/04/2019 11:05:47 [id number] MIRANDA MARIE MD [address] [place] [address] 07/13/2022 08:31:21 07/13/2022 11:33:53 Expiratory wheezing 3789813 R06.2 How to use the Aerochambe rAttach the inhaler to the chamberSpr ay 2 puffs in to the chamberPut the chamber in your mouth with you lips closed around itTake 3 separate breaths from the chamber. Don't breath into the chamber. Call your PCP to schedule a follow up appointmen t within the next 2 weeks. Health Concerns Section Related Observation LastModified by Organization Detai ls LastModified Time None Recorded Concern Status LastModified by Organization Details LastModified Time None Recorded Advance Directives Directive None Recorded Payers Insurance Date Sequence Insurance Name Policy Number Policy Hanks Covered Member ID Hanks Member ID Guarantor Name 07/13/2022 1 [place] [employer] Brianne Lloyd [id number] Brianne Lloyd 08/28/2022 2 [place] Brianne Lloyd [id number] Brianne Lloyd Notes Date Note Type Note Provider Name and Address Organization Details Recorded Time 07/13/2022 text/html ROS as noted in the HPI head & chest congestion with cough, and facial pain & pressure for 2 weeks. Pain and pressure are increasing. has been trying OTC things for 2wks. HX of asthma a younger person. MIRANDA MARIE MD [address] [place], [address], [place] - [facility] 07/13/2022 11:33:00 OBGyn Episode No OBEpisode recorded.
--- OUTSIDE RECORDS SUMMARY | 2025-02-18 07:25 | XMS_ITS | Encounter Summary ---
Author Organization [facility] Address [address] [place] [address] [address] [address] Care Team Providers Care Burn Nurse Name Role Phone Tiffanie Aguiar MD Primary Care Provider [phone] Encounter Details Date Type Department Care Team (Latest Contact Info) Description 08/28/2018 Abstract [facility] CONVERSIONS Dental, Provider, DDS Social History Tobacco Use Types Packs/Day Years [...] Description 04/06/2025 2:30 PM EST Office Visit [facility] [address] [place] [address] Romelia Gunter MD [address] [place] [address] documented as of this encounter Visit Diagnoses Not on filedocumented in this encounter Care Teams Burn Nurse Relationship Specialty Start Date End Date Tiffanie Aguiar MD [address] [place] [address] PCP - General Family Medicine 04/13/12 documented as of this encounter
== END 2025-02-18 07:23 | disposition home or self-care (01) ==
LOC: HO.MAMMO 07:22
PROVIDERS: PCP Student in an Organized Health Care Education/Training Program; Visit Provider Student in an Organized Health Care Education/Training Program
DX: Z12.31 Encounter for screening mammogram for malignant neoplasm of breast (principal)
CPT/HCPCS: 77063; 77067

== ENCOUNTER → 2025-02-18 07:30 | Outpatient (BNV) | payer OTHER, SELFPAY | PROVIDERS: PCP Student in an Organized Health Care Education/Training Program; Visit Provider Internal Medicine | DX: Z12.31 Encounter for screening mammogram for malignant neoplasm of breast (principal) | CPT/HCPCS: 77063; 77067 ==